=== PATIENT | female | born 2000 | race African-American/Black ===

== ENCOUNTER 2020-12-04 19:56 | Emergency (ER) | payer SELFPAY ==
[~2020-12-04] VITALS: Ht 167.6 cm; Wt 64.9 kg
[2020-12-04 20:15] VITALS: BP 157/90
--- NOTE | 2020-12-04 20:39 | NUR ---
PATIENT NOT IN THE LOBBY. [facility]BS
== END 2020-12-04 20:41 | disposition left against medical advice (07) ==
LOC: ED 20:00
DX: H57.89 Other specified disorders of eye and adnexa (principal); Z53.21 Procedure and treatment not carried out due to patient leaving prior to being seen by health care provider